=== PATIENT | female | born 1945 | race Two or more races ===

== ENCOUNTER 2019-11-20 09:04 | Outpatient (CLI) | payer OTHER | END 2019-11-20 09:17 | disposition home or self-care (01) | LOC: SONOGRAMA 09:04 | DX: N39.0 Urinary tract infection, site not specified (principal) ==

== ENCOUNTER 2021-01-27 15:43 | Outpatient (CLI) | payer OTHER | END 2021-01-27 15:50 | disposition home or self-care (01) | LOC: RAD 15:43 | PROVIDERS: ATTEND Internal Medicine Cardiovascular Disease | DX: J18.0 Bronchopneumonia, unspecified organism (principal) ==

== ENCOUNTER → 2023-10-10 | Outpatient (CLI) | payer OTHER | END | disposition home or self-care (01) | LOC: SONOGRAMA 08:10 | PROVIDERS: ATTEND Family Medicine | DX: R10.11 Right upper quadrant pain (principal) ==